=== PATIENT | female | born 1955 | race Caucasian/White ===

== ENCOUNTER 2017-08-14 04:45 | Inpatient (IN) | payer BC ==
[2017-07-25 13:30] VITALS: Ht 170.2 cm; Wt 98.4 kg
--- NOTE | 2017-07-25 14:09 | PAT Medication Instructions ---
Service Date Jul 25, 2017. Current Home Medication List Anastrozole (Anastrozole), 1 TAB PO QAM Brimonidine Tartrate (Alphagan P Oph), 1 DROP OP BID Calcium W/ Magnesium (Calcium Magnesium 750), 1 TAB PO Q2D Dapagliflozin-Metformin HCl (Xigduo Xr 2.5-1000 mg), 2 TAB PO QAM Doxycycline Monohydrate (Monodox), 100 MG PO BID Glucosamine Sulfate (Glucosamine), 1,500 MG PO BID Irbesartan (Avapro), 150 MG PO QAM Lifitegrast (Xiidra), 1 DROP OPB BID Metformin Hcl (Glucophage), 1,000 MG PO BID Potassium Chloride (Micro-K Ext Rel), 10 MEQ PO QPM Rosuvastatin Calcium (Crestor), 10 MG PO QAM Sitagliptin Phosphate (Januvia), 100 MG PO QAM Triamterene/Hctz (Triamterene/Hctz 37.5-25MG), 1 TAB PO QAM Verapamil (Verelan Pm), 200 MG PO HS [Pre [place]], 1,000 MG PO BID Medication Instructions For Your Scheduled Surgery -Contact your prescriber for instructions for: Anastrozole (Anastrozole), 1 TAB PO QAM -Continue until completed as directed by your financial services specialist (will be D/C'd prior to surgery): Metformin Hcl (Glucophage), 1,000 MG PO BID Sitagliptin Phosphate (Januvia), 100 MG PO QAM Potassium Chloride (Micro-K Ext Rel), 10 MEQ PO QPM - Hold the following medications 2 weeks prior to surgery: Glucosamine Sulfate (Glucosamine), 1,500 MG PO BID [Pre [place]], 1,000 MG PO BID - Hold the following medications the morning of surgery: Calcium W/ Magnesium (Calcium Magnesium 750), 1 TAB PO Q2D Dapagliflozin-Metformin HCl (Xigduo Xr 2.5-1000 mg), 2 TAB PO QAM Irbesartan (Avapro), 150 MG PO QAM Triamterene/Hctz (Triamterene/Hctz 37.5-25MG), 1 TAB PO QAM - Take the following medications the morning of surgery with a sip of water: Brimonidine Tartrate (Alphagan P Oph), 1 DROP OP BID (bring this with you to the hospital) Doxycycline Monohydrate (Monodox), 100 MG PO BID Lifitegrast (Xiidra), 1 DROP OPB BID (bring this with you to the hospital) Rosuvastatin Calcium (Crestor), 10 MG PO QAM - Take the following medications as scheduled the night before surgery: Brimonidine Tartrate (Alphagan P Oph), 1 DROP OP BID Doxycycline Monohydrate (Monodox), 100 MG PO BID Lifitegrast (Xiidra), 1 DROP OPB BID Metformin Hcl (Glucophage), 1,000 MG PO BID Verapamil (Verelan Pm), 200 MG PO HS If you have any questions please call us at [phone] or [phone] or [phone]
--- NOTE | 2017-07-25 14:52 | DIAGNOSTIC IMAGING REPORT ---
CHEST 2 VIEWS ROUTINE CLINICAL HISTORY: Preoperative chest COMPARISON STUDY: No previous studies for comparison. FINDINGS: The heart is borderline enlarged. There is no failure. There is no focal pulmonary consolidation. There are no pleural effusions. There are multiple old left-sided rib fractures. There are degenerative changes present within the spine. There is deviation of the trachea at the thoracic inlet to the right. This suggests a thoracic inlet mass such as a thyroid goiter. Clinical correlation is advocated.[ IMPRESSION: 1. Deviation of the trachea at the thoracic inlet to the right of midline. This suggests a thoracic inlet mass such as a thyroid goiter. Clinical correlation is advocated. 2. No evidence of failure. No evidence of acute parenchymal consolidation. Electronically signed by: Enzo Bingham M.D. 07/25/2017 2:50 PM Dictated Date/Time: 07/25/2017 2:49 PM
[2017-07-25 15:02] LABS: PTT PATIENT 23.6 SECONDS (21.0-31.0)
--- NOTE | 2017-08-12 08:16 | History and Physical ---
History & Physical Date Aug 12, 2017. Chief Complaint RIGHT KNEE PAIN. History of Present Illness The patient is a 62 year old female with complaints of right knee pain for years. Has had injections, pt and nsaids with no relief. Additional History Hepatic Disease: No Endocrine Disorder: No Kidney Disease: No Hypertension: Yes Heart Disease: No Bleeding Tendencies: No Infectious Diseases: No Allergies Coded Allergies: Canagliflozin (Verified Allergy, Unknown, YEAST INFECTION, 07/25/17) Glyburide (Verified Allergy, Unknown, EXTREMELY LOW BLOOD SUGAR, 07/25/17) Sulfa Antibiotics (Verified Allergy, Unknown, RASH, 07/25/17) Home Medications Scheduled Anastrozole (Anastrozole), 1 TAB PO QAM Brimonidine Tartrate (Alphagan P Oph), 1 DROP OP BID Calcium W/ Magnesium (Calcium Magnesium 750), 1 TAB PO Q2D Dapagliflozin-Metformin HCl (Xigduo Xr 2.5-1000 mg), 2 TAB PO QAM Doxycycline Monohydrate (Monodox), 100 MG PO BID Glucosamine Sulfate (Glucosamine), 1,500 MG PO BID Irbesartan (Avapro), 150 MG PO QAM Lifitegrast (Xiidra), 1 DROP OPB BID Metformin Hcl (Glucophage), 1,000 MG PO BID Potassium Chloride (Micro-K Ext Rel), 10 MEQ PO QPM Rosuvastatin Calcium (Crestor), 10 MG PO QAM Sitagliptin Phosphate (Januvia), 100 MG PO QAM Triamterene/Hctz (Triamterene/Hctz 37.5-25MG), 1 TAB PO QAM Verapamil (Verelan Pm), 200 MG PO HS [Pre [place]], 1,000 MG PO BID Physical Examination Skin: warm/dry, no rash Eyes: normal inspection, EOMI, sclerae normal ENT: normal ENT inspection, pharynx normal Head: normocephalic, atraumatic Neck: supple, no adenopathy, trachea midline Respiratory/Chest: lungs clear, normal breath sounds, no respiratory distress Cardiovascular: regular rate, rhythm, no edema, no murmur Abdomen / GI: normal bowel sounds, non tender Back: normal inspection Extremities: normal inspection, normal range of motion, + pertinent finding ( DECREASED ROM AND PAIN WITH ROM. ) Neurologic/Psych: no motor/sensory deficits, alert, normal reflexes, oriented x 3 Diagnosis DJD RIGHT KNEE Plan of Treatment PLAN IS TO ADMIT AND UNDERGO RIGHT TKA, HOME PT AND ASA POST OP.
[~2017-08-14] VITALS: Ht 170.2 cm; Wt 98.4 kg
[2017-08-14] VITALS (8 sets, daily range): BP systolic 114–144; BP diastolic 52–83; PULSE 60–75; TEMP 36.3–36.8; O2SAT 2–98
[~2017-08-14 04:45] MED LIST: ANAS1TAB7 PO; BRIM0.1S OP; CALC1TAB25 PO; CRS/10 PO; DAPA1TAB PO; DOXY100C76 PO; GLUC10007 PO; IRBE-37 PO; LIFI5DRO OPB; METF-384 PO; POTA10CA28 PO; SITA100T3 PO; TRIATAB3 PO; VERA1CAP6 PO; [UNRECOGNIZED DRUG - OTHER] PO
[2017-08-14] MEDS ORDERED: LTMOPS OP (05:32)
[2017-08-14] MEDS ORDERED: CARB1SOL15 OPB (05:39)
[2017-08-14] MEDS ORDERED: LACTATED RINGER'S 1000ML IV SCH (06:00)
[2017-08-14] MEDS ORDERED: TRANEXAMIC ACID INJ 1,000 MG x 2 Bags IV SCH ×2 (06:00)
[2017-08-14] MEDS ORDERED: CEFAZOLIN 2000MG IV PUSH 15 ML IV SCH ×2 (06:00)
[2017-08-14] MEDS ORDERED: LACTATED RINGER'S 1000ML 500 ML IV SCH (06:00)
[2017-08-14] MEDS ORDERED: DEXAMETHASONE 4 MG TAB PO SCH ×2 (06:00)
[2017-08-14] MEDS ORDERED: CeleBREX 200 MG CAP PO SCH (06:00)
[2017-08-14] MEDS ORDERED: ACETAMINOPHEN 500 MG TAB PO SCH ×2 (06:00)
[2017-08-14] MEDS ORDERED: FAMOTIDINE 20 MG TAB PO SCH ×2 (06:00)
[2017-08-14] MEDS ORDERED: LACTATED RINGER'S 1000ML 1,000 ML IV SCH (06:00)
[2017-08-14] MEDS ORDERED: METOCLOPRAMIDE HCL 10 MG TAB PO SCH ×2 (06:00)
[2017-08-14] MEDS: TRANEXAMIC ACID INJ 1,000 MG x 2 Bags IV SCH ×4 (06:30→06:43)
[2017-08-14] MEDS ORDERED: BUPIVACAINE 0.5 % 5 MG/1 ML PF 10ML VIAL ONE (06:32)
[2017-08-14] MEDS ORDERED: DEXAMETHASONE SOD INJ 4 MG/ML VIAL ONE (06:33)
[2017-08-14] MEDS ORDERED: EpINEphrine INJ 1MG/ML AMP 1 MG/ML AMP ONE (06:33)
[2017-08-14] MEDS ORDERED: BUPIVACAINE 0.25% 30 ML VIAL ONE (06:33)
[2017-08-14] MEDS ORDERED: BACITRACIN 50000 UNIT VIAL ONE (06:35)
[2017-08-14] MEDS ORDERED: POVIDONE-IODINE OP SOLN 30 ML BTL ONE (06:35)
[2017-08-14] MEDS ORDERED: MIDAZOLAM HCL 1 MG/ML 2ML VIAL ONE ×3 (06:38→07:32)
--- NOTE | 2017-08-14 06:47 | History & Physical Bridge Note ---
H&P Re-Evaluation Bridge Note: I have examined the patient, reviewed the History & Physical and in the interval since the performance of the History & Physical I have noted the following changes of clinical significance: No changes noted
[2017-08-14] MEDS ORDERED: PROPOFOL IV EMULSION 10 MG/ML 20 ML VIAL IV ONE (07:45)
[2017-08-14] MEDS ORDERED: LIDOCAINE HCL 2% 2 ML VIAL (20MG/ML) ONE (07:45)
[2017-08-14] MEDS: ROPIVACAINE 5MG/ML 30 ML 150 MG, BUPIVACAINE 0.5% MPF INJ 30 ML, EpINEphrine HCL INJ 0.... INFIL SCH ×32 (07:50→08:03)
--- NOTE | 2017-08-14 08:07 | [facility] Post Operative Brief Note ---
Immediate Operative Summary Operative Date Aug 14, 2017. Pre-Operative Diagnosis Right Knee Degenerative Joint Disease Post-Operative Diagnosis Right Knee Degenerative Joint Disease Procedure(s) Performed Right Total Knee Arthroplasty Surgeon Dr. Ahumada Route Rider Surgeon(s) Matilda Jimenez PA-C Estimated Blood Loss 10 ml Findings Consistent with Post-Op Diagnosis Specimens A. Right Knee Bone and Tissue Drains None Anesthesia Type MAC Spinal Regional Complication(s) none Disposition Accompanied Pt To Recover: no Disposition: Recovery Room / PACU
--- NOTE | 2017-08-14 08:09 | [facility] Operative Report ---
Operative Report Operative Date Aug 14, 2017. Pre-Operative Diagnosis Right Knee Degenerative Joint Disease Post-Operative Diagnosis Right Knee Degenerative Joint Disease Procedure(s) Performed Right Total Knee Arthroplasty Surgeon Dr. Ahumada Pattern Lease Inspector Surgeon(s) Matilda Jimenez PA-C Estimated Blood Loss 10 ml Findings As above Specimens A. Right Knee Bone and Tissue Drains None Anesthesia Type MAC Spinal Regional Complication(s) none Disposition no Recovery Room / PACU Description of Procedure IMPLANTS USED: Cardenas and nephew journey 2 knee size 4 cemented femoral component , a size 3 tibial component, size 11 constrained insert and size 32 all polyethylene patella INDICATIONS: Mrs. Gerard is a pleasant (female) who has unfortunately failed all forms of conservative measures. Therefore, they have decided to undergo elective surgical intervention. All risks and benefits of the surgery were discussed with the patient and the family in entirety. PROCEDURE: The patient was brought to the operating room and properly identified by myself, anesthesia, and staff. Patient was given a spinal anesthesia and placed on the operating table in the supine position. Tourniquets were applied to the right upper thigh. The leg was then prepped and draped in usual sterile fashion. We made a standard midline approach over the patella and dissected down through the subcutaneous tissue to identify the capsule and performed a medial capsulotomy with the patella everted and the knee flexed.The patient matched implant was then put onto the femur. The femur measured to be a size 4. This was then put into place. We made the appropriate cuts and then placed a retractor behind the proximal tibia to retract anteriorly. We then placed the patient matched knee implant on the tibia. It measured to be a size 3. A size 3 guide was then put in place. We used the tibial punch then put the trial components into place. We had very good range of motion, excellent stability, and excellent patella tracking. We removed the trial components and irrigated the wound. We impacted the components in place using antibiotic cement. All excess cement was removed. We then irrigated the wound once more. We closed the capsule with 0 PDS suture , deep dermis and 2-0 Vicryl, and finally the skin with bee. A sterile dressing was applied. The patient was taken to the recovery room in stable condition. Due to the complex nature of the procedure, the entire surgery was performed with the operational assistance of [Matilda HORAN)]. The law office assistant was under direct supervision, was involved in the actual performance of all aspects of the surgical procedure including hemostasis, tissue retraction and incision, instrument management, patient positioning, and wound closure. I attest to the content of the Intraoperative Record and any orders documented therein. Any exceptions are noted below.
[2017-08-14] MEDS ORDERED: ONDANSETRON INJ 2 MG/ML 2 ML VIAL IV PRN ×2 (08:15→08:30)
[2017-08-14] MEDS ORDERED: MAGNESIUM HYDROXIDE SUSP 30 ML UDC PO PRN (08:15)
[2017-08-14] MEDS ORDERED: ALUMINUM/MAGNESIUM/SIMETH (MAALOX MAX) 30 ML UDC PO PRN (08:15)
[2017-08-14] MEDS ORDERED: ZOLPIDEM TARTRATE 5 MG TAB PO PRN (08:15)
[2017-08-14] MEDS ORDERED: BISACODYL 10 MG SUPP PR PRN (08:15)
[2017-08-14] MEDS ORDERED: EpHEDrine SULFATE INJ 50 MG/ML AMP IV PRN (08:30)
[2017-08-14] MEDS ORDERED: ATROPINE SULFATE 0.1 MG/ML 5ML SYR IV PRN (08:30)
[2017-08-14] MEDS ORDERED: FENTANYL CITRATE INJ 50 MCG/1 ML 2 ML VIAL IV PRN (08:30)
[2017-08-14] MEDS ORDERED: METFORMIN HCL 500 MG TAB PO SCH (09:00)
[2017-08-14] MEDS ORDERED: SITAGLIPTIN 100 MG TAB PO SCH (09:00)
[2017-08-14] MEDS ORDERED: DAPAGLIFLOZIN METFORMIN HCL PO SCH (09:00)
--- NOTE | 2017-08-14 09:01 | Anesthesiology Progress Note ---
Anesthesia Post Op Note Date & Time Aug 14, 2017 at 09:01 Vital Signs Pain Intensity: 0 Vital Signs Past 12 Hours Date Time Temp Pulse Resp B/P (MAP) Pulse Ox O2 Delivery O2 Flow Rate FiO2 08/14/17 08:53 72 16 98 08/14/17 08:53 72 16 08/14/17 08:51 141/68 08/14/17 08:48 74 17 99 08/14/17 08:48 73 17 08/14/17 08:46 133/75 08/14/17 08:45 129/72 08/14/17 08:38 36.9 73 16 129/72 (95) 100 Oxymask 10 08/14/17 05:49 36.6 67 20 133/81 96 Room Air Notes Mental Status: alert / awake / arousable, participated in evaluation Pt Amnestic to Procedure: Yes Nausea / Vomiting: adequately controlled Pain: adequately controlled Airway Patency, RR, SpO2: stable & adequate BP & HR: stable & adequate Hydration State: stable & adequate Anesthetic Complications: no major complications apparent
[2017-08-14] MEDS: SODIUM CHLORIDE 0.9% 1000ML 1,000 ML IV SCH ×2 (10:01→20:12)
[2017-08-14] MEDS: ASPIRIN 81 MG ECTAB PO SCH ×2 (10:01→20:14)
[2017-08-14] MEDS: IRBESARTAN 150 MG TAB PO SCH (10:02)
[2017-08-14] MEDS: DOCUSATE SODIUM 100 MG CAP PO SCH ×2 (10:03→20:14)
[2017-08-14] MEDS: TRIAMTERENE/HCTZ 37.5/25MG TAB PO SCH (10:03)
[2017-08-14] MEDS: ANASTROZOLE 1 MG TAB PO SCH (10:03)
[2017-08-14] MEDS ORDERED: PHARMACY GLYCEMIC MGMT CONSULT PRN (10:30)
[2017-08-14] MEDS ORDERED: INSULIN GLARGINE SOLOSTAR 100 UNITS/ML 3 ML PEN SC STA (10:42)
[2017-08-14] MEDS: INSULIN ASPART 100 UNITS/ML 3 ML PEN SC SCH ×3 (12:42→21:00)
[2017-08-14] MEDS: ACETAMINOPHEN 500 MG TAB PO SCH ×2 (13:51→20:14)
--- NOTE | 2017-08-14 14:00 | Pharmacy Progress Note ---
Glycemic Control Intl Consult Date of Service Aug 14, 2017. Scope Glycemic Pharmacist consulted by Dr Ahumada on 08/14/17 for glycemic control and to write orders per [facility] inpatient glycemic control protocol Objective Weight (Kilograms): 98.400 Accuchecks BSG (last 24hrs): Test 08/14/17 05:13 08/14/17 08:45 08/14/17 12:10 Bedside Glucose 155 mg/dl (70-90) 174 mg/dl (70-90) 247 mg/dl (70-90) Recent Pertinent Medications Outpatient Anti-diabetic Regimen: * Xigduo XR, Metformin, Januvia Risk Factors for Insulin Resistance: * Steroids: Dexamethasone 4mg IV and 8mg PO Assessment & Plan ASSESSMENT: * Ms. Gerard is a 62yo F s/p R TKA. Outpatient regimen includes Metformin, Januvia , Xigduo. At this juncture she is ordered a regular diet. BSG this am around 0900 was 174, indicating to me that glycemic management will be difficult to manage if correct metabolic coverage is not chosen correctly. She received PO DXM 8mg plus IV DXM 4mg this AM. Additional DXM 10mg IV is ordered for AM of . Will use wt/stress of 3 on 08/14/17 plus a lantus scale for HS of . Literature suggests that the 24-48hrs after surgery are the most critical for wound healing, ergo, will add 00,04 checks in addition to weight/stress 3 insulin regimen. PLAN FOR INPATIENT GLYCEMIC CONTROL: * Holding outpatient oral diabetes medications * Basal insulin with LANTUS 45units this afternoon plus lantus scale tonight. Give 10units of lantus if BSG over >/=200. Give 0units if BSG under 200. * Correctional Insulin with NOVOLOG / REGULAR per scale ACHS or Q6hrs while NPO * Goal Range: Low 110 mg/dL - High 140 mg/dL * Correction Factor: 15 mg/dL/unit * Nutritional / Prandial insulin per carb ratio of 1 unit per 5 grams CHO consumed * Please note that the plan above was derived based on current level of insulin resistance and hospital stress. These recommendations are appropriate for inpatient admission only. Plan of care upon discharge will need to be reassessed to avoid potential outpatient hypo/hyperglycemia. Thank you.
[2017-08-14] MEDS: CEFAZOLIN IV 2,000 MG in SYRINGE 0 ML IV SCH ×2 (14:24→21:55)
[2017-08-14] MEDS ORDERED: TRANEXAMIC ACID INJ 1,000 MG in SODIUM CHLORIDE 0.9% 100ML 100 ML IV SCH (14:30)
[2017-08-14] MEDS: OXYCODONE HCL IR 5 MG TAB (IMMEDIATE RELEASE) PO PRN (16:44)
[2017-08-14] MEDS ORDERED: NURSING VERBAL MED ORDER ONE (17:00)
[2017-08-14] MEDS: Pt's Own Med: BRIMONIDINE TARTRATE 0.1% OPH SOLN OP SCH (20:11)
[2017-08-14] MEDS: POTASSIUM CHLORIDE 10 MEQ TABCR PO SCH (20:14)
[2017-08-14] MEDS: VERAPAMIL HCL 180 MG TABCR PO SCH (20:14)
[2017-08-14] MEDS ORDERED: INSULIN GLARGINE SOLOSTAR 100 UNITS/ML 3 ML PEN SC ONE (21:00)
[2017-08-15] MEDS: OXYCODONE HCL IR 5 MG TAB (IMMEDIATE RELEASE) PO PRN ×2 (03:04→07:23)
[2017-08-15] MEDS: SODIUM CHLORIDE 0.9% 1000ML 1,000 ML IV SCH (03:54)
[2017-08-15] MEDS: INSULIN ASPART 100 UNITS/ML 3 ML PEN SC SCH ×7 (03:59→23:48)
[2017-08-15 04:00] VITALS: BP 119/71; PULSE 62; TEMP 36.4; O2SAT 94
[2017-08-15] MEDS: ACETAMINOPHEN 500 MG TAB PO SCH (05:51)
[2017-08-15 07:06] LABS: HEMOGLOBIN A1C 7.2 % (4.5-5.6)
[2017-08-15] MEDS ORDERED: INSULIN GLARGINE SOLOSTAR 100 UNITS/ML 3 ML PEN SC ONE ×2 (07:30→21:00)
[2017-08-15] MEDS ORDERED: DEXAMETHASONE INJ 10 MG in SYRINGE 0 ML IV SCH (07:30)
--- NOTE | 2017-08-15 08:05 | Anesthesiology Progress Note ---
Anesthesia Post Op Note Date & Time Aug 15, 2017 at 08:05 Vital Signs Pain Intensity: 6.0 Vital Signs Past 12 Hours Date Time Temp Pulse Resp B/P (MAP) Pulse Ox O2 Delivery O2 Flow Rate FiO2 08/15/17 04:00 36.4 62 16 119/71 (87) 94 CPAP 08/15/17 00:00 Room Air CPAP 08/14/17 23:35 36.6 60 16 124/75 (91) 96 Room Air Notes Mental Status: alert / awake / arousable, participated in evaluation Pt Amnestic to Procedure: Yes Nausea / Vomiting: adequately controlled Pain: adequately controlled Airway Patency, RR, SpO2: stable & adequate BP & HR: stable & adequate Hydration State: stable & adequate Neuraxial Anesthesia: was administered, sensory block resolved Anesthetic Complications: no major complications apparent
[2017-08-15 08:09] VITALS: BP 132/88; PULSE 62; TEMP 36.5; O2SAT 95
[2017-08-15] MEDS: ASPIRIN 81 MG ECTAB PO SCH ×2 (08:22→21:11)
[2017-08-15] MEDS: ROSUVASTATIN CALCIUM 10 MG TAB PO SCH (08:23)
[2017-08-15] MEDS: DOCUSATE SODIUM 100 MG CAP PO SCH ×2 (08:23→21:10)
[2017-08-15] MEDS: IRBESARTAN 150 MG TAB PO SCH (08:23)
[2017-08-15] MEDS: TRIAMTERENE/HCTZ 37.5/25MG TAB PO SCH (08:23)
[2017-08-15] MEDS: Pt's Own Med: BRIMONIDINE TARTRATE 0.1% OPH SOLN OP SCH ×2 (08:24→21:09)
[2017-08-15] MEDS: ANASTROZOLE 1 MG TAB PO SCH (08:28)
--- NOTE | 2017-08-15 10:10 | Pharmacy Progress Note ---
Pharmacy Glycemic Short Note 2 Date of Service Aug 15, 2017. OUTPATIENT ANTIDIABETIC REGIMEN: * Metformin, Januvia, Maximilianuo ASSESSMENT: * Ms. Gerard's dinner/HS BSGs from 08/14/17 and today's AM fasting look OK. She received post-op 10mg IV DXM this AM concurrently with Lantus 45 units. 45units of lantus worked to good effect yesterday. I surmise this should be sufficient to cover dexamethasone's metabolic antagoniziation of insulin. Literature suggests that the 24-48hrs after surgery are the most critical for wound healing , ergo, will add 00,04 checks in addition to weight/stress 3 insulin regimen. PLAN FOR INPATIENT GLYCEMIC CONTROL: * Hold outpatient oral diabetes medications * Basal insulin * Lantus 45 units one more time today. Lantus scale for HS: Give 10units of lantus if BSG over >/=200. Give 0units if BSG under 200. * Bolus insulin * NovoLog per scale ACHS or Q6hrs while NPO * Goal Range: Low 110 mg/dL - High 140 mg/dL * Correction Factor: 15 mg/dL/unit * Nutritional / Prandial insulin per carb ratio of 1 unit per 5 grams CHO consumed
--- NOTE | 2017-08-15 10:48 | Orthopedic Progress Note ---
Orthopedic Progress Note Date of Service Aug 15, 2017. Subjective Post OP Day: 1 Reports: feeling well, nausea / vomiting, Denies: chest pain, SOB, light headedness, calf pain Additional Notes: PATIENT IS HAVING SOME PAIN BUT THE NAUSEA SEEMS WORSE THIS AM. SHE HAD SOME NONI EARLIER THIS AM. ZOFRAN ABOUT AN HOUR AGO DID NOT HELP. Objective calves soft nontender, N/V intact, capillary refill less than 2 sec., incision C /D/I, A&O x3, toes mobile Date Time Temp Pulse Resp B/P (MAP) Pulse Ox O2 Delivery O2 Flow Rate FiO2 08/15/17 08:09 36.5 62 16 132/88 (103) 95 Room Air 08/15/17 07:10 Room Air 08/15/17 04:00 36.4 62 16 119/71 (87) 94 CPAP 08/15/17 00:00 Room Air CPAP 08/14/17 23:35 36.6 60 16 124/75 (91) 96 Room Air 08/14/17 19:05 36.4 66 16 132/78 (96) 95 Room Air 08/14/17 15:45 Room Air 08/14/17 11:57 36.8 69 16 125/77 (93) 2 08/14/17 11:00 36.3 75 17 140/79 (99) 97 Nasal Cannula 2.0 Assessment & Plan Assessment: POD#1 SP RIGHT TKA NAUSEA Plan: PT/OT DVT PROPH- ASA 81MG BID PAIN MANAGEMENT- DC NONI AND TYLENOL. SWITCH TO NORCO. - TRY PHENERGAN FOR NAUSEA DC PLANNING- DC HOME WITH HH ADV, LIKELY TOMORROW DUE TO NAUSEA/PAIN ISSUES.
[2017-08-15 12:07] VITALS: BP 145/84; PULSE 60; TEMP 36.5; O2SAT 92
[2017-08-15] MEDS ORDERED: TRAMADOL HCL 50 MG TAB PO PRN (12:45)
[2017-08-15] MEDS ORDERED: PROMETHAZINE HCL INJ 25 MG in SODIUM CHLORIDE 0.9% 50ML 50 ML IV PRN (12:45)
[2017-08-15 13:09] VITALS: BP 146/76; PULSE 53; TEMP 36.5; O2SAT 95
[2017-08-15 13:15] LABS: HEMATOCRIT 32.3 % (37-47); HEMOGLOBIN 10.7 g/dL (12.0-16.0); MEAN CELL VOLUME 85.4 fL (80-100); MEAN CORPUSCULAR HEMOGLOBIN 28.3 pg (25-34); MEAN CORPUSCULAR HGB CONC 33.1 g/dl (32-36); MEAN PLATELET VOLUME 11.1 fL (7.4-10.4); PLATELET COUNT 201 K/uL (130-400); RED CELL DISTRIBUTION WIDTH CV 13.6 % (11.5-14.5); RED CELL DISTRIBUTION WIDTH SD 42.1 fL (36.4-46.3); WHITE BLOOD COUNT 11.88 K/uL (4.8-10.8)
[2017-08-15 13:23] LABS: CREATININE 0.61 mg/dl (0.60-1.20); POTASSIUM 3.8 mmol/L (3.5-5.1)
[2017-08-15] MEDS ORDERED: KETOROLAC TROMETHAMINE 15 MG/ML VIAL IV. PRN (13:45)
[2017-08-15 16:17] VITALS: BP 155/60; PULSE 56; TEMP 36.7; O2SAT 97
[2017-08-15] MEDS: HYDROCODONE/ACETAMIN 5/325MG TAB PO PRN ×2 (17:47→23:46)
[2017-08-15] MEDS: POTASSIUM CHLORIDE 10 MEQ TABCR PO SCH (21:10)
[2017-08-15] MEDS: VERAPAMIL HCL 180 MG TABCR PO SCH (21:10)
[2017-08-15 23:32] VITALS: BP 132/78; PULSE 60; TEMP 36.3; O2SAT 95
[2017-08-16] MEDS: INSULIN ASPART 100 UNITS/ML 3 ML PEN SC SCH ×3 (04:00→12:56)
[2017-08-16] MEDS ORDERED: ASPI-320 PO (07:56)
[2017-08-16] MEDS ORDERED: HYDR-5688 PO (07:56)
[2017-08-16] MEDS ORDERED: ONDA-170 PO (07:56)
[2017-08-16 08:06] VITALS: BP 138/86; PULSE 63; TEMP 36.3; O2SAT 97
--- NOTE | 2017-08-16 08:12 | Discharge Instructions ---
Discharge Instructions Date of Service Aug 16, 2017. Admission Reason for Admission: Right Knee Osteoarthritis Discharge Discharge Diagnosis / Problem: sp right TKA Discharge Goals Goal(s): Decrease discomfort, Improve function, Increase independence Activity Recommendations Activity Limitations: per Instructions/Follow-up section . Instructions / Follow-Up Instructions / Follow-Up ACTIVITY RECOMMENDATIONS: SELF CARE INSTRUCTIONS AFTER TOTAL KNEE REPLACEMENT A. You may need to continue a physical therapy program after discharge from the hospital. There are several options available to you. Your doctor will assist you in selecting the best one for you. 1. An out-patient facility 2 to 3 times a week for therapy or home therapy. 2. Continue working on all exercises taught to you in the hospital. Your goals should be to increase bending of your knee to 90 degrees and beyond and to fully straighten your knee. B. You may progress at your own pace from walking with a walker or crutches to a cane; then to no assistive devices. C. Make walking a part of your daily routine. Be up as much as comfortable with rest periods throughout the day. Rest with leg elevation is very important. Use the ice wrap frequently for the first 3-4 weeks. D. There are no restrictions on activities. You may ride in a car, shop, participate in arcade attendant and all social activities. E. Wear the long elastic stockings (RADHA hose) 20 hours a day for 2 weeks after surgery. They can be removed several times a day for laundering and for a bath. F. You may shower, no tub baths until cleared by your doctor. SPECIAL CARE INSTRUCTIONS: VERY IMPORTANT TO READ AND REVIEW A. There are a few signs you need to watch for after you are home. Call [facility] if you notice any of the followin. Increased severe knee pain. Some pain is expected especially when you exercise. 2. Increased swelling in your leg or knee; pain or swelling of the calf muscle in either lower leg. 3. Any fluid drainage from the incision. 4. Shortness of breath or chest pain. B. Please call [facility] [place] at if you have any concerns or questions about your operation or recovery. The doctor or his nurse will return your call promptly. C. You must take antibiotics before dental work, bladder, bowel or other surgery. Your doctor will provide you with a permanent care to carry describing this precaution. IMPORTANT: * REMEMBER TO TAKE ASPIRIN, 81 MG, TWICE DAILY FOR 4 WEEKS UNLESS OTHERWISE DIRECTED. THIS IS YOUR BLOOD THINNER. * HIGH RISK PATIENTS MAY BE PRESCRIBED A STRONGER BLOOD THINNER. THIS WILL BE PROVIDED AT DISCHARGE. * CALL IF INCREASED PAIN, REDNESS, DRAINAGE OR FEVER GREATER THAT 101. * WEAR RADHA HOSE 20 HOURS PER DAY FOR 2 WEEKS. * DERMABOND Prineo- This is a mesh tape dressing that is covered with glue. It should remain in place until the incision is properly healed, usually 10-14 days. This dressing is designed to naturally slough off. You may trim the excess mesh tape as it peels off. Incision may be briefly wet in a shower. Dry immediately by blotting with a clean, dry towel. Do not bath or swim until instructed by your doctor. Do not scratch, rub, or pick at the dressing. Do not apply any topical ointments or lotions until dressing is completely removed and/or instructed by your doctor. There may be a small piece of suture material at one end of your incision. Do not pull or trim this. If it is bothersome or catching on clothing, you may cover it with a band-aid. FOLLOW UP VISIT: If appointment is not already scheduled: Please call [facility] to make a follow-up appointment for 2 weeks after your surgery at . Current Hospital Diet Patient's current hospital diet: Diabetes Type 2 Diet Discharge Diet Recommended Diet: Regular Diet Procedures Procedures Performed: Right Total Knee Arthroplasty Pending Studies Studies pending at discharge: no Laboratory Results Hemoglobin A1c Test 08/15/17 06:34 Range/Units Estimated Average Glucose 160 mg/dl Hemoglobin A1c 7.2 H 4.5-5.6 % Medical Emergencies . Who to Call and When: Medical Emergencies: If at any time you feel your situation is an emergency, please call 911 immediately. . Non-Emergent Contact Non-Emergency issues call your: Surgeon . "Provider Documentation" section prepared by Erica Jimenez. .
--- NOTE | 2017-08-16 08:13 | Orthopedic Progress Note ---
Orthopedic Progress Note Date of Service Aug 16, 2017. Subjective Post OP Day: 2 Reports: feeling well, Denies: chest pain, SOB, nausea / vomiting, light headedness, calf pain Additional Notes: Feeling much better today. Tolerating [place] much better. Nausea resolved. Objective calves soft nontender, N/V intact, capillary refill less than 2 sec., incision C /D/I, A&O x3, toes mobile Date Time Temp Pulse Resp B/P (MAP) Pulse Ox O2 Delivery O2 Flow Rate FiO2 08/16/17 08:06 36.3 63 15 138/86 (103) 97 Room Air 08/16/17 07:25 Room Air 08/15/17 23:50 Room Air 08/15/17 23:32 36.3 60 16 132/78 (96) 95 Room Air 08/15/17 16:17 36.7 56 18 155/60 (91) 97 Room Air 08/15/17 15:38 Room Air 08/15/17 13:09 36.5 53 16 146/76 (99) 95 Room Air 08/15/17 12:07 36.5 60 18 145/84 (104) 92 Room Air Assessment & Plan Assessment: POD#2 SP RIGHT TKA NAUSEA Plan: PT/OT DVT PROPH- ASA 81MG BID PAIN MANAGEMENT- DC NONI AND TYLENOL. SWITCH TO NORCO. - TRY PHENERGAN FOR NAUSEA DC PLANNING- DC HOME WITH HH ADV today
[2017-08-16] MEDS: DOCUSATE SODIUM 100 MG CAP PO SCH (08:32)
[2017-08-16] MEDS: ASPIRIN 81 MG ECTAB PO SCH (08:32)
[2017-08-16] MEDS: IRBESARTAN 150 MG TAB PO SCH (08:32)
[2017-08-16] MEDS: Pt's Own Med: BRIMONIDINE TARTRATE 0.1% OPH SOLN OP SCH (08:32)
[2017-08-16] MEDS: ROSUVASTATIN CALCIUM 10 MG TAB PO SCH (08:32)
[2017-08-16] MEDS: TRIAMTERENE/HCTZ 37.5/25MG TAB PO SCH (08:33)
[2017-08-16] MEDS: ANASTROZOLE 1 MG TAB PO SCH (08:37)
[2017-08-16] MEDS: HYDROCODONE/ACETAMIN 5/325MG TAB PO PRN ×2 (08:51→13:26)
[2017-08-16 11:36] VITALS: BP 136/80; PULSE 58; TEMP 37; O2SAT 97
[2017-08-16 12:59] VITALS: BP 136/80; PULSE 58; TEMP 37; O2SAT 97
--- NOTE | 2017-08-16 13:28 | Pharmacy Progress Note ---
Pharmacy Glycemic Short Note 2 Date of Service Aug 16, 2017. OUTPATIENT ANTIDIABETIC REGIMEN: * Metformin, Januvia, Xigduo ASSESSMENT: * BSGs evening of 08/15/17 and 08/16/17 look to be in fine order. I suspect that the DXM has worn off at this point in time. PLAN FOR INPATIENT GLYCEMIC CONTROL: * Will start Januvia 08/17/17 * Basal insulin * No further lantus ordered at this juncture. AM fasting BSG looked good and lunch BSG even better w/o any metabolic coverage since yesterday. * Bolus insulin - plan to loosen up CF/CR starting with dinner * NovoLog per scale ACHS or Q6hrs while NPO * Goal Range: Low 110 mg/dL - High 140 mg/dL * Correction Factor: 25 mg/dL/unit * Nutritional / Prandial insulin per carb ratio of 1 unit per 8 grams CHO consumed
[2017-08-17] MEDS ORDERED: SITAGLIPTIN 100 MG TAB PO SCH (09:00)
== END 2017-08-16 13:44 | disposition home health service (06) | DRG 470 ==
LOC: C.ACU 04:45 → C.3E 06:45 → ENRESERV 08:52
PROVIDERS: ADMIT Orthopaedic Surgery; ATTEND Orthopaedic Surgery
PROC: 0SRC0J9 Replacement of Right Knee Joint with Synthetic Substitute, Cemented, Open Approach (ICD-10-PCS; principal; 2017-08-14 07:00)
DX: M17.11 Unilateral primary osteoarthritis, right knee (principal); R11.0 Nausea; I10 Essential (primary) hypertension; E11.9 Type 2 diabetes mellitus without complications; E78.5 Hyperlipidemia, unspecified; G47.33 Obstructive sleep apnea (adult) (pediatric); E66.9 Obesity, unspecified; H40.9 Unspecified glaucoma; Z68.34 Body mass index [BMI] 34.0-34.9, adult; Z85.3 Personal history of malignant neoplasm of breast; Z92.3 Personal history of irradiation; Z79.2 Long term (current) use of antibiotics; Z79.811 Long term (current) use of aromatase inhibitors; Z79.84 Long term (current) use of oral hypoglycemic drugs; Z88.2 Allergy status to sulfonamides; Z88.8 Allergy status to other drugs, medicaments and biological substances; Z98.890 Other specified postprocedural states